=== PATIENT | female | born 1995 | race Caucasian/White ===

== ENCOUNTER 2024-05-26 10:01 | Emergency (ER) | payer OTHER ==
[2024-05-26 10:50] LABS: APPEARANCE,URINE SLIGHTLY CLOUDY (CLEAR); BILIRUBIN,URINE NEGATIVE (NEGATIVE); COLOR,URINE YELLOW (YELLOW); GLUCOSE,URINE NEGATIVE (NEGATIVE); KETONES,URINE NEGATIVE (NEGATIVE); LEUKOCYTE ESTERASE,URINE TRACE (NEGATIVE); NITRITE,URINE NEGATIVE (NEGATIVE); OCCULT BLOOD,URINE TRACE-INTACT (NEGATIVE); PROTEIN,URINE NEGATIVE (NEGATIVE); UROBILINOGEN,URINE 0.2 EU/dL (0.2-1.0)
[2024-05-26] MEDS ORDERED: Lidocaine 1% 5 ML VIAL ONE (10:50)
[2024-05-26 10:55] LABS: AMORPHOUS SEDIMENT,URINE RARE; BACTERIA,URINE FEW; EPITHELIAL CELLS,URINE MODERATE; MUCUS,URINE NOT SEEN; RBC,URINE 0-5 (0-5); WBC,URINE 0-5 (0-5)
[2024-05-26] MEDS: cefTRIAXone 500 MG Vial IM ONE (11:01)
[2024-05-26] MEDS: Lidocaine 1% 50 ML MDV INJECT ONE (11:01)
[2024-05-29 00:09] LABS: RAPID PLASMA REAGIN (RPR) Non Reactive (Non Reactive)
== END 2024-05-26 11:34 | disposition home or self-care (01) ==
LOC: JP.ED 10:01
DX: N76.6 Ulceration of vulva (principal); N39.0 Urinary tract infection, site not specified; Z79.899 Other long term (current) drug therapy
CPT/HCPCS: 81001; 81025; 86592; 87070; 87077; 87205; 87428; 87529; 96372; 99283; J0696; J2003; 36415